=== PATIENT | female | born 2000 | race Caucasian/White ===

== ENCOUNTER 2019-04-12 16:08 | Emergency (ER) | payer MEDICAID ==
[~2019-04-12] VITALS: Ht 167.6 cm; Wt 62.0 kg
[2019-04-12 17:45] LABS: CLARITY URINE CLOUDY (CLEAR); COLOR URINE DARK YELLOW (YELLOW); KETONES URINE 2+ (NEGATIVE); LEUKOCYTE ESTERASE URINE 2+ (NEGATIVE); NITRITE URINE NEGATIVE (NEGATIVE); OCCULT BLOOD URINE NEGATIVE (NEGATIVE); PROTEIN URINE 1+ (NEGATIVE); SPECIFIC GRAVITY URINE 1.036 (1.005-1.030)
[2019-04-12] MEDS ORDERED: CEFTRIAXONE SODIUM 250 MG/VIAL IM ONE (18:30)
[2019-04-12] MEDS ORDERED: DOXYCYCLINE HYCLATE 100MG CAPSULE PO ONE (18:30)
[2019-04-12] MEDS ORDERED: METRONIDAZOLE 50MG/ML 1ML ORAL SYR(NEO) PO ONE (18:30)
[2019-04-12] MEDS ORDERED: METRONIDAZOLE 500MG TABLET PO ONE (19:00)
[2019-04-12] MEDS ORDERED: LIDOCAINE HCL 1% 20ML VIAL (Pyxis) INJ INFIL ONE (19:00)
[2019-04-12 19:01] LABS: CHLORIDE 110 mEq/L (98-107)
[2019-04-12 19:04] LABS: INR 1.2
[2019-04-12 19:05] LABS: BASOPHILS % 0.2 % (0.0-2.0); EOSINOPHILS % 2.5 % (0.0-5.0); HEMATOCRIT. 34.4 % (36.0-48.0); HEMOGLOBIN. 11.3 g/dL (12.0-16.0); LYMPHOCYTES % 29.9 % (20.0-50.0); MEAN CORPUSCULAR HEMOGLOBIN 28.6 pg (28.0-32.0); MEAN CORPUSCULAR VOLUME 86.5 fL (81.0-99.0); MEAN PLATELET VOLUME 7.1 fl (7.4-10.4); MONOCYTES % 6.9 % (2.0-8.0); NEUTROPHILS % 60.5 % (40.0-76.0); PLATELET 312 x1000/uL (130-400); RED BLOOD CELL COUNT 3.98 mill/uL (4.2-5.4); RED CELL DISTRIBUTION WIDTH 15.4 % (11.6-14.6)
[2019-04-12 22:57] LABS: *BARBITURATES SCREEN URINE NEGATIVE (NEGATIVE); *BENZODIAZEPINES SCREEN URINE NEGATIVE (NEGATIVE); *COCAINE SCREEN URINE NEGATIVE (NEGATIVE); METHADONE URINE SCREEN NEGATIVE (NEGATIVE); OPIATES URINE SCREEN NEGATIVE (NEGATIVE); PHENCYCLIDINE URINE SCREEN NEGATIVE (NEGATIVE)
[2019-04-12 22:58] LABS: *AMPHETAMINES SCREEN URINE PRESUMTIVE POSITIVE (NEGATIVE); CANNABINOID URINE SCREEN PRESUMTIVE POSITIVE (NEGATIVE)
[2019-04-13 14:49] VITALS: BP 108/62
[2019-04-17 13:09] LABS: CHLAMYDIA TRACHOMATIS NAA Negative (Negative); NEISSERIA GONORRHOEAE NAA Negative (Negative)
== END 2019-04-13 14:50 | disposition home or self-care (01) ==
LOC: ER 16:08
DX: N39.0 Urinary tract infection, site not specified (principal); N73.9 Female pelvic inflammatory disease, unspecified; Z59.0 Homelessness; F14.10 Cocaine abuse, uncomplicated; F15.10 Other stimulant abuse, uncomplicated; F17.210 Nicotine dependence, cigarettes, uncomplicated; Z71.6 Tobacco abuse counseling; F31.9 Bipolar disorder, unspecified
CPT/HCPCS: 36415; 80053; 80305; 81003; 81025; 85025; 85610; 87491; 87591; 96372; 99283; 99406; J0696; J3490

== ENCOUNTER 2019-04-14 11:34 | Emergency (ER) | payer MEDICAID ==
[~2019-04-14] VITALS: Ht 160 cm; Wt 60.0 kg
[2019-04-14 11:40] VITALS: BP 113/71
[2019-04-14 12:20] LABS: BASOPHILS % 0.4 % (0.0-2.0); EOSINOPHILS % 1.6 % (0.0-5.0); HEMATOCRIT. 36.1 % (36.0-48.0); LYMPHOCYTES % 25.3 % (20.0-50.0); MEAN CORPUSCULAR HEMOGLOBIN 29.1 pg (28.0-32.0); MEAN CORPUSCULAR VOLUME 87.2 fL (81.0-99.0); MEAN PLATELET VOLUME 7.2 fl (7.4-10.4); MONOCYTES % 6.2 % (2.0-8.0); NEUTROPHILS % 66.5 % (40.0-76.0); PLATELET 272 x1000/uL (130-400); RED BLOOD CELL COUNT 4.14 mill/uL (4.2-5.4); RED CELL DISTRIBUTION WIDTH 15.4 % (11.6-14.6)
[2019-04-14 12:26] LABS: CHLORIDE 114 mEq/L (98-107)
[2019-04-14 12:29] LABS: ETHANOL BLOOD < 10 mg/dL
[2019-04-14 12:40] LABS: HCG SCREEN NEGATIVE
== END 2019-04-14 13:10 | disposition home or self-care (01) ==
LOC: ER 11:34
DX: F15.10 Other stimulant abuse, uncomplicated (principal); R45.851 Suicidal ideations; F14.10 Cocaine abuse, uncomplicated; F31.9 Bipolar disorder, unspecified; Z98.890 Other specified postprocedural states
CPT/HCPCS: 36415; 80048; 80307; 80320; 80329; 84703; 99284; G0480